=== PATIENT | female | born 1980 | race Caucasian/White ===

== ENCOUNTER 2017-02-07 22:38 | Outpatient (CLI) | payer OTHER ==
[~2017-02-07] VITALS: Ht 162.6 cm; Wt 87.2 kg
[~2017-02-07 22:38] MED LIST: NAPR-260 PO
[2017-02-07 23:04] VITALS: Ht 162.6 cm; Wt 87.2 kg
[2017-02-08 00:01] LABS: ADD UMIC YES; UR ASCORBIC ACID NEGATIVE (NEGATIVE); UR BILIRUBIN (Dip) NEGATIVE (NEGATIVE); UR BLOOD (Dip) NEGATIVE (NEGATIVE); UR CLARITY CLOUDY (CLEAR); UR COLOR YELLOW (YELLOW); UR GLUCOSE (Dip) NEGATIVE (NEGATIVE); UR KETONES (Dip) NEGATIVE (NEGATIVE); UR LEUKOCYTE ESTERASE (Dip) 1+ Leu/ul (NEGATIVE); UR MUCUS FEW /HPF (NONE SEEN); UR NITRITE (Dip) NEGATIVE (NEGATIVE); UR RBC 13 /HPF (0-5); UR SPECIFIC GRAVITY (Dip) 1.018 (1.003-1.030); UR SQUAMOUS EPITHELIAL CELL FEW /HPF (FEW); UR TOTAL PROTEIN (Dip) NEGATIVE (NEGATIVE); UR UROBILINOGEN (Dip) NEGATIVE (NEGATIVE)
--- NOTE | 2017-02-08 00:09 | RADRPT ---
PROCEDURE: US OB cervical length. CLINICAL INDICATION: labor TECHNIQUE: Multiple sonographic images of the pelvis were obtained. The images were reviewed on a PACS workstation. COMPARISON: No pertinent prior examinations were submitted for comparison. FINDINGS: The cervix is closed with a length of 4.1 cm. There is a single live intrauterine gestation. Cardiac activity is present with 146 beats per minut e. There is a breech, variable presentation. This examination was not performed for anatomy. The placenta is posterior, grade 0 appearance. There is no evidence for an abruption or placenta pre via. A 4.3 x 4.3 x 4.4 cm uterine fibroid is noted within the anterior myometrium in the mid to lower tangirnaq rine segment. IMPRESSION: Close cervix measuring 4.1 cm in length. RPTAT: HIKT .Hernan Toledo MD, MD Date Time Electronically viewed and signed by .Hernan Toledo MD, on 02/08/2017 00:09 .T/
--- NOTE | 2017-02-08 00:40 | PN ---
Triage Information Date/Time February Reason for visit: Abd/pelvic pain Weeks of Gestation 21 w /Para 5/4 Diabetes: none Hypertention: none Additional information PMHx: none. PSHx:. NKDA Objective BP 116/63 T=98.0 Heart Rate: 140's Contractions: None Results/Medications Results 24 hrs Laboratory Tests Test 02/07/17 22:49 Urine Color YELLOW Urine Clarity CLOUDY A Urine pH 6.0 Urine Specific [place] 1.018 Urine Ketones NEGATIVE Urine Nitrite NEGATIVE Urine Bilirubin NEGATIVE Urine Urobilinogen NEGATIVE Urine Leukocyte Esterase 1+ H Urine Microscopic RBC 13 H Urine Microscopic WBC 3 Urine Squamous Epithelial Cells FEW Urine Calcium Oxalate Crystals MANY A Urine Mucus FEW A Urine Hemoglobin NEGATIVE Urine Glucose NEGATIVE Urine Total Protein NEGATIVE Imaging Results US: cervix is closed and 4.1 cm long. Posterior placenta. 4.3 x 4.3 x 4.4 cm anterior, low uterine fibroid. Disposition: Discharge Assessment/Plan A: IUP at 21 w. Anterior, low-lying uterine fibroid. Left lower quadrant pain. P: Explained to the pt that the fibroid could be responsible for the pain. May take Tylenol as needed. Otherwise there are no other signs or sx's of labor. ALEXANDRO LYNN MD Feb 08, 2017 00:40
--- NOTE | 2017-02-08 00:43 | TRIAGE ---
OB Triage Datetime Report Generated by CPN: 02/08/2017 00:43 Datetime: 02/08/2017 00:33 Stage of : OB Triage Datetime: 02/07/2017 22:57 Stage of : OB Triage Assessment Type: Triage Maternal Assessment Level of Consciousness: Fully Conscious Headache: Denies Blurred Vision: No Respiratory Effort: Unlabored; Regular Rhythm; Equal Expansion Nausea/Vomiting: Denies RUQ Epigastric Pain: Denies Facial Edema: None Fall Risk Assessment History of Falling: (0) No Secondary Diagnosis: (0) No Ambulatory Aid: (0) Bedrest/Nurse Assist IV Therapy: (0) No Gait: (0) Normal/Bedrest/Immobile Mental Status: (0) Oriented to Own Ability Fall Score: 0 Fall Risk Score Definition: No Risk: No action required Datetime: 02/07/2017 22:55 Time of Arrival: 02/07/2017 22:27 EGA: 20.6 Arrived By: Wheelchair Arrived From: Home Chief Complaint: LLQ INTERMITTENT PAIN Movement: Present Contractions: Denies/Absent Rupture of Membranes: Denies Vaginal Bleeding: None Vaginal Discharge: Denies Recent Sexual Intercouse: Denies Abdominal Trauma: Not Applicable Patient Complaints: Other Time Provider Notified: 02/08/2017 23:30 Provider Notified: REICHE Initial Plan: HEART TONE, TOCO, CALL OB Datetime: 02/07/2017 22:48 Labor Evaluation Monitor Mode: Palpation Resting Tone Bernie: Relaxed Contraction Comments: LLQ OF ABD PALPATED, PT. STATED SHE WAS HAVING PAIN AT TIME OF PALPATION, BU T ABD REMAINED SOFT Datetime: 02/07/2017 22:45 Heart Rate Comments: HEART TONES OBTAINED ONLY D/T GA Datetime: 02/07/2017 22:39 Labor Evaluation Monitor Mode: External Contraction Comments: TOCO PLACED SLIGHT BELOW UMBILICUS
== END 2017-02-08 00:44 | disposition home or self-care (01) ==
LOC: OBT 22:38 → L-D 22:39 → OBT 02-08 00:44
PROVIDERS: ATTEND Obstetrics & Gynecology
DX: O26.892 Other specified pregnancy related conditions, second trimester (principal); Z3A.21 21 weeks gestation of pregnancy; R10.2 Pelvic and perineal pain
CPT/HCPCS: 76817; 81001; Z7500; G0463